=== PATIENT | female | born 1975 | race Caucasian/White ===

== ENCOUNTER → 2017-12-27 07:03 | Outpatient (CLI) | payer OTHER, SELFPAY ==
[2017-12-27 09:29] LABS: Hematocrit 40.8 % (36-46); Mean Corpuscular HGB Conc 34.4 % (30-36); Mean Corpuscular Hemoglobin 34.6 PG (26-34); Mean Corpuscular Volume 100.4 fL (80-100); Platelet Count 264 X10^3/uL (150-400); Red Blood Cell Count 4.06 X10^6/uL (4.0-5.2); Red Cell Distribution Width 12.1 % (11.6-14.8); White Blood Cell Count 5.5 X10^3/uL (4.5-11.0)
[2017-12-27 09:30] LABS: Add Manual Diff / Slide Review YES
[2017-12-27 09:56] LABS: Alanine Aminotransferase 27 IU/L (9-52); Albumin 4.6 g/dL (3.5-5.0); Albumin Globulin Ratio 1.5 (1.0-2.8); Alkaline Phosphatase 53 U/L (38-126); Aspartate Aminotransferase 21 IU/L (14-36); BUN Creatinine Ratio 18.6 (6-22); Bilirubin Total 0.5 mg/dL (0.2-1.3); Blood Urea Nitrogen 13 mg/dL (7-17); Calcium 9.6 mg/dL (8.4-10.2); Carbon Dioxide 28 mmol/L (22-32); Chloride 99 mmol/L (98-107); Cholesterol 177 mg/dL (140-199); Estimated Glomerular Filt Rate > 60.0 mL/min (>60); Globulin 3.1 g/dL (1.7-4.1); Glucose 90 mg/dL (70-100); HDL Cholesterol 77 mg/dL (40-60); HEMOLYSIS < 15 (0-50); LDL Cholesterol Calculated 86 mg/dL (<100); Potassium 4.4 mmol/L (3.4-5.1); Sodium 140 mmol/L (137-145); Total Protein 7.7 g/dL (6.3-8.2); Triglycerides 70 mg/dL (35-150)
[2017-12-27 10:11] LABS: Neutrophils Absolute Manual 1815 /uL (3000-5900); Total Cells Counted 100
[2017-12-27 10:12] LABS: RBC Morphology Normal Morphology
[2017-12-27 10:19] LABS: Vitamin D 25 Hydroxy (D3) 45.1 ng/mL (30.0-100.0)
[2017-12-27 10:23] LABS: T4 Total Thyroxine 8.52 ug/dL (5.5-11.0); T7 (Free Thyroxine Index) 2.79 (1.65-3.89); Triiodothryronine T3 Uptake 32.7 % (23.5-40.5)
[2017-12-27 10:36] LABS: Thyroid Stimulating Hormone 0.81 uIU/mL (0.47-4.68)
[2017-12-28 18:32] LABS: Ionized Calcium 4.7 mg/dL (4.8-5.6)
[2017-12-31 15:59] LABS: Parathyroid Hormone Int 50 pg/mL (14-64)
== END ==
PROVIDERS: PCP Nurse Practitioner Family; Visit Provider Nurse Practitioner Family
DX: G47.00 Insomnia, unspecified (principal); F41.9 Anxiety disorder, unspecified; R53.83 Other fatigue; E55.9 Vitamin D deficiency, unspecified; D64.9 Anemia, unspecified; E83.52 Hypercalcemia
CPT/HCPCS: 36415; 80053; 80061; 82306; 82330; 83970; 84436; 84443; 84479; 85025; 86376; 86800

== ENCOUNTER 2020-08-04 15:15 | Outpatient (RCR) | payer BC, SELFPAY ==
--- NOTE | 2020-07-07 17:26 | PT.OIE ---
Current Diagnoses Sciatica, left side (07/07/20) Visit Care Team Role Provider Type Meg Samaniego ND Attending Provider Non-Staff Primary Care Provider Referring Provider Specialty: Naturopathy Address: [address] [place] [address], [facility] Email: Physical Therapy Initial Evaluation PT-OP-A Visit Information Start: 07/07/20 16:53 Freq: Status: Active Protocol: Document 07/07/20 16:54 HH (Rec: 07/07/20 17:26 [email or web address]) Out-Patient Physical Therapy Visit Information Visit Information Visit Type Initial Evaluation Visit Start Time 15:15 Visit Stop Time 16:00 Total Visit Minutes 45 Visit Number 08/21 Number of INDUSTRIAL RENDERER Visits 0 Evaluation Information Evaluation Date 07/07/20 PT-OP-B Current Condition Start: 07/07/20 16:53 Freq: Status: Active Protocol: Document 07/07/20 16:54 HH (Rec: 07/07/20 17:26 [email or web address]) Current Condition History of Current Condition Onset Date 05/10/20 Current Complaints L posterior thigh pain. History of Current Condition pt is a 45yo active and healthy female here for her new onset of dull L posterior thigh pain since 05/10/20. Pt stated that she usually sleeps in a child pose position. Her L posterior thigh pain started after that night and her pain was consistent for a few days. Hip stretches and movements tend to help but prolonged sitting tend to worsen her symptoms. She tends to sit in a figure 4 position now to relieve her pain. She denies her pain does not affect her sleep and there's no tingling and numbness sensation. 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 PT-OP-C Subjective Start: 07/07/20 16:53 Freq: Status: Active Protocol: Document 07/07/20 16:54 HH (Rec: 07/07/20 17:26 [email or web address]) Patient Questionnaires Oswestry Low Back Index Oswestry Score 18 Oswestry Impairment 1 to 19% Impaired (Score 1-19) OP-PT Pain Assessment Location L posterior thigh Pain Location Details medial proximal hamstrings Intensity 2 Scale Used Numeric (0 - 10) Description Aching,Dull Frequency Frequent Pain Aggravating Factors Sitting Pain Alleviating Factors Position,Exercise,Massage PT-OP-D Balance Start: 07/07/20 16:53 Freq: Status: Active Protocol: Document 07/07/20 16:54 HH (Rec: 07/07/20 17:26 [email or web address]) Balance Tests Single Limb Standing Single Limb- Right WFL Single Limb- Left WFL PT-OP-F Manual Assessment Start: 07/07/20 16:53 Freq: Status: Active Protocol: Document 07/07/20 16:54 HH (Rec: 07/07/20 17:26 [email or web address]) Manual Assessments Soft Tissue Assessment Soft Tissue Mobility Assessment increased tenderness at L medial proximal to moderate manual pressure Joint Mobility Assessment Joint Mobility Assessment no deficits noted. PT-OP-H Neuro Start: 07/07/20 16:53 Freq: Status: Active Protocol: Document 07/07/20 16:54 HH (Rec: 07/07/20 17:26 [email or web address]) Deep Tendon Reflex & Clonus Assessment Deep Tendon Reflex Bilateral Achilles Deep Tendon Reflex 2+ Normal Bilateral Patellar Deep Tendon Reflex 2+ Normal PT-OP-K Range of Motion Start: 07/07/20 16:53 Freq: Status: Active Protocol: Document 07/07/20 16:54 HH (Rec: 07/07/20 17:26 [email or web address]) Lumbar Spine Range of Motion Lumbar Spine Active Percentage Testing Position Supine Comments floor touch test = knuckles on floor Lateral flexion L / R= to lateral knee bilaterally extension= shoulders clear ankles Hip Goniometric Range of Motion Hip Right Active Hip ROM WFL Yes Testing Position Supine Straight Leg Raise 93 Internal Rotation 43 External Rotation 42 Left Active Hip ROM WFL Yes Testing Position Supine Straight Leg Raise 94 Internal Rotation 45 External Rotation 40 PT-OP-L Special Tests Start: 07/07/20 16:53 Freq: Status: Active Protocol: Document 07/07/20 16:54 HH (Rec: 07/07/20 17:26 [email or web address]) Special Tests Lumbar Spine Special Tests Standing Flexion Test Results -ve B Slump Test Results -ve B Rosalio Test Results -ve B Straight Leg Raise Test Results -ve B Hip Special Tests Scour Test Test Results -ve B [place] Test Results -ve B PT-OP-M Strength Start: 07/07/20 16:53 Freq: Status: Active Protocol: Document 07/07/20 16:54 HH (Rec: 07/07/20 17:26 HH [email or web address]) Hip Strength Hip Manual Muscle Testing Right Flexion (L2) 5 Normal Extension (S1) 5 Normal Abduction 5 Normal Adduction 5 Normal Left Flexion (L2) 4+ Good+ Extension (S1) 4+ Good+ Abduction 5 Normal Adduction 5 Normal Knee Strength Knee Manual Muscle Testing Right Flexion (S2) 5 Normal Extension (L3) 5 Normal Left Flexion (S2) 4- Good- Extension (L3) 5 Normal Comments prone, noticed L hip flexion and lumbar extension PT-OP-Q Treatments Start: 07/07/20 16:53 Freq: Status: Active Protocol: Document 07/07/20 16:54 HH (Rec: 07/07/20 17:26 [email or web address]) Therapeutic Exercises Prone Exercises hamstrings curl Side left Equipment Used level 2 band Comments for hEP, cues on preventing lumbar ext Manual Therapy Treatment Soft Tissue Mobilization proximal hamstrings Body Location L medial proximal hamstrings Mobilization Type Sustained Pressure,Trigger Point Release Intensity/Depth Deep Body Position Prone Comments slight tenderness noted at medial proximal hamstrings PT-OP-T Assessment and Plan Start: 07/07/20 16:53 Freq: Status: Active Protocol: Document 07/07/20 16:54 HH (Rec: 07/07/20 17:26 [email or web address]) Physical Therapy Assessment Rehab Potential Rehabilitation Potential Excellent Evaluation Complexity Number of Personal Factors/Comorbidities 1-2 Number of Body Systems Impaired 1-2 Clinical Presentation at Evaluation Stable Impairments Impairments Pain,Soft Tissue Mobility, Strength Goals Oswestry Impairment pt scores 18 on Oswestry LBP questionnaire Food Trades Assistants Goal (LTG) pt will score <10 on Oswestry LBP questionnaire to improve her quality of life LTG Duration 6 weeks pain Impairment unable to sit more than 1hour d/t pain Nursing Home Goal (LTG) pt will be able to sit more than 1 hour without pain LTG Duration 6 weeks hamstrings strength Impairment L hamstrings strength = 4-/5 Nursing Home Goal (LTG) pt will improve her L hamstrings strength to 5 /5 so 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 Upon assessment, pt's hip strength is symmetrical and WNL, along with -ve findings for lumbar radiculopathy or hip joint pathology. However, pt's pain primarily located and medial aspect of L proximal hamstrings and she has significant weakness and compensation (lumbar extension ) during strength test. Pt most likely suffered from a hamstring strain. Provided HEP with hamstring curl and hamstring STM. 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 Physical Therapy Plan Frequency and Duration Frequency of Treatment 1x/Week Duration of Treatment 6 weeks Plan of Care Start Date 07/07/20 Plan of Care End Date 08/21/20 Therapeutic Interventions Therapeutic Interventions Balance Training,Gait Training ,Home Exercise Program,Joint Mobilizations,Manual Therapy, Neuromuscular Re-education, Patient/Caregiver Education, Self-Care/Home Management,Soft Tissue Mobilization,Taping, Therapeutic Activities, Therapeutic Exercises Modalities Biofeedback,Cold Pack/Ice Massage,Electric Stimulation, Hot Packs,Infrared Therapy, Traction- Mechanical, Ultrasound Next Visit Focus/Plan Next Note Type Treatment Note Next Visit Plan check hEP bike hamstring curl , RDL, good mornings SLS
--- NOTE | 2020-07-07 17:27 | PT.OPPOC ---
Physical, Occupational & Speech Therapy At [facility] Current Diagnoses Sciatica, left side (07/07/20) Visit Care Team Role Provider Type Meg Samaniego ND Attending Provider Non-Staff Primary Care Provider Referring Provider Specialty: Naturopathy Address: [address] [place] [address], [facility] Email: Plan Of Care PT-OP-T Assessment and Plan Start: 07/07/20 16:53 Freq: Status: Active Protocol: Document 07/07/20 16:54 HH (Rec: 07/07/20 17:26 HH [email or web address]) Physical Therapy Assessment Rehab Potential Rehabilitation Potential Excellent Evaluation Complexity Number of Personal Factors/Comorbidities 1-2 Number of Body Systems Impaired 1-2 Clinical Presentation at Evaluation Stable Impairments Impairments Pain,Soft Tissue Mobility, Strength Goals Oswestry Impairment pt scores 18 on Oswestry LBP questionnaire Nursing Home Goal (LTG) pt will score <10 on Oswestry LBP questionnaire to improve her quality of life LTG Duration 6 weeks pain Impairment unable to sit more than 1hour d/t pain Drywall Taper Goal (LTG) pt will be able to sit more than 1 hour without pain LTG Duration 6 weeks hamstrings strength Impairment L hamstrings strength = 4-/5 Nursing Home Goal (LTG) pt will improve her L hamstrings strength to 5 /5 so 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 Upon assessment, pt's hip strength is symmetrical and WNL, along with -ve findings for lumbar radiculopathy or hip joint pathology. However, pt's pain primarily located and medial aspect of L proximal hamstrings and she has significant weakness and compensation (lumbar extension ) during strength test. Pt most likely suffered from a hamstring strain. Provided HEP with hamstring curl and hamstring STM. 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 Physical Therapy Plan Frequency and Duration Frequency of Treatment 1x/Week Duration of Treatment 6 weeks Plan of Care Start Date 07/07/20 Plan of Care End Date 08/21/20 Therapeutic Interventions Therapeutic Interventions Balance Training,Gait Training ,Home Exercise Program,Joint Mobilizations,Manual Therapy, Neuromuscular Re-education, Patient/Caregiver Education, Self-Care/Home Management,Soft Tissue Mobilization,Taping, Therapeutic Activities, Therapeutic Exercises Modalities Biofeedback,Cold Pack/Ice Massage,Electric Stimulation, Hot Packs,Infrared Therapy, Traction- Mechanical, Ultrasound Next Visit Focus/Plan Next Note Type Treatment Note Next Visit Plan check hEP bike hamstring curl , RDL, good mornings SLS Plan of Care Dates Plan of Care Start Date 07/07/20 Plan of Care End Date 08/21/20 Electronically Signed by: Arnulfo Banuelos, PT 07/07/20 0358 Please Sign and Return: I have reviewed this Plan of Care and certify that the skilled therapy services above are required to meet the patient?s needs. Physician Signature Date Printed Name and Credentials Clinical Instructor Signature Printed Name and Credentials
--- NOTE | 2020-07-14 16:10 | PT.OTN ---
Current Diagnoses Sciatica, left side (07/14/20) Physical Therapy Treatment Note PT-OP-A Visit Information Start: 07/07/20 16:53 Freq: Status: Active Protocol: Document 07/14/20 15:12 HH (Rec: 07/14/20 16:10 [id number]) Out-Patient Physical Therapy Visit Information Visit Information Visit Type Treatment Note Visit Start Time 15:15 Visit Stop Time 16:00 Total Visit Minutes 45 Visit Number 2/ Number of PLANT ASSIGNER Visits 0 PT-OP-B Current Condition Start: 07/07/20 16:53 Freq: Status: Active Protocol: Document 07/07/20 16:54 HH (Rec: 07/07/20 17:26 [email or web address]) Current Condition History of Current Condition Onset Date 05/10/20 Current Complaints L posterior thigh pain. History of Current Condition pt is a 45yo active and healthy female here for her new onset of dull L posterior thigh pain since 05/10/20. Pt stated that she usually sleeps in a child pose position. Her L posterior thigh pain started after that night and her pain was consistent for a few days. Hip stretches and movements tend to help but prolonged sitting tend to worsen her symptoms. She tends to sit in a figure 4 position now to relieve her pain. She denies her pain does not affect her sleep and there's no tingling and numbness sensation. 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 Patient Reported Progress Same PT-OP-D Balance Start: 07/07/20 16:53 Freq: Status: Active Protocol: Document 07/07/20 16:54 HH (Rec: 07/07/20 17:26 [email or web address]) Balance Tests Single Limb Standing Single Limb- Right WFL Single Limb- Left WFL PT-OP-F Manual Assessment Start: 07/07/20 16:53 Freq: Status: Active Protocol: Document 07/07/20 16:54 HH (Rec: 07/07/20 17:26 [email or web address]) Manual Assessments Soft Tissue Assessment Soft Tissue Mobility Assessment increased tenderness at L medial proximal to moderate manual pressure Joint Mobility Assessment Joint Mobility Assessment no deficits noted. PT-OP-H Neuro Start: 07/07/20 16:53 Freq: Status: Active Protocol: Document 07/07/20 16:54 HH (Rec: 07/07/20 17:26 [email or web address]) Deep Tendon Reflex & Clonus Assessment Deep Tendon Reflex Bilateral Achilles Deep Tendon Reflex 2+ Normal Bilateral Patellar Deep Tendon Reflex 2+ Normal PT-OP-K Range of Motion Start: 07/07/20 16:53 Freq: Status: Active Protocol: Document 07/07/20 16:54 HH (Rec: 07/07/20 17:26 [email or web address]) Lumbar Spine Range of Motion Lumbar Spine Active Percentage Testing Position Supine Comments floor touch test = knuckles on floor Lateral flexion L / R= to lateral knee bilaterally extension= shoulders clear ankles Hip Goniometric Range of Motion Hip Right Active Hip ROM WFL Yes Testing Position Supine Straight Leg Raise 93 Internal Rotation 43 External Rotation 42 Left Active Hip ROM WFL Yes Testing Position Supine Straight Leg Raise 94 Internal Rotation 45 External Rotation 40 PT-OP-L Special Tests Start: 07/07/20 16:53 Freq: Status: Active Protocol: Document 07/07/20 16:54 HH (Rec: 07/07/20 17:26 [email or web address]) Special Tests Lumbar Spine Special Tests Standing Flexion Test Results -ve B Slump Test Results -ve B Rosalio Test Results -ve B Straight Leg Raise Test Results -ve B Hip Special Tests Scour Test Test Results -ve B [place] Test Results -ve B PT-OP-M Strength Start: 07/07/20 16:53 Freq: Status: Active Protocol: Document 07/07/20 16:54 HH (Rec: 07/07/20 17:26 [email or web address]) Hip Strength Hip Manual Muscle Testing Right Flexion (L2) 5 Normal Extension (S1) 5 Normal Abduction 5 Normal Adduction 5 Normal Left Flexion (L2) 4+ Good+ Extension (S1) 4+ Good+ Abduction 5 Normal Adduction 5 Normal Knee Strength Knee Manual Muscle Testing Right Flexion (S2) 5 Normal Extension (L3) 5 Normal Left Flexion (S2) 4- Good- Extension (L3) 5 Normal Comments prone, noticed L hip flexion and lumbar extension PT-OP-Q Treatments Start: 07/07/20 16:53 Freq: Status: Active Protocol: Document 07/14/20 15:12 HH (Rec: 07/14/20 16:10 [id number]) Therapeutic Exercises Supine Exercises SLR Supine Exercise Name with knee extensoin and DF Side bilateral Reps/Minutes 8 x2 Prone Exercises hamstrings curl Side left Equipment Used 2# ankle weight Comments for hEP, cues on preventing lumbar ext Standing Exercises SLS Side bilateral Reps/Minutes 8 x2 Comments cues on soft knee and neutral spine RDL Side bilateral Equipment Used 2x 4# DBs Reps/Minutes 8 x2 Manual Therapy Treatment Soft Tissue Mobilization proximal hamstrings Body Location L medial proximal hamstrings Mobilization Type Sustained Pressure,Trigger Point Release Intensity/Depth Deep Body Position Prone Comments slight tenderness noted at center proximal hamstrings PT-OP-T Assessment and Plan Start: 07/07/20 16:53 Freq: Status: Active Protocol: Document 07/14/20 15:12 HH (Rec: 07/14/20 16:10 [id number]) Physical Therapy Assessment Goals Oswestry Impairment pt scores 18 on Oswestry LBP questionnaire Asbestos Handler Goal (LTG) pt will score <10 on Oswestry LBP questionnaire to improve her quality of life LTG Duration 6 weeks pain Impairment unable to sit more than 1hour d/t pain Asbestos Handler Goal (LTG) pt will be able to sit more than 1 hour without pain LTG Duration 6 weeks hamstrings strength Impairment L hamstrings strength = 4-/5 Snf Goal (LTG) pt will improve her L hamstrings strength to 5 /5 so she can fully practicipate her Isaura class without discomfort LTG Duration 6 weeks Assessment Summary Assessment Pt has a flare up at her HS pain possibly d/t excessive resistance from resistance band. Back off to level 1 / no weight today and she jairon fine . Added RDL and SLR to HEP Physical Therapy Plan Frequency and Duration Frequency of Treatment 1x/Week Duration of Treatment 6 weeks Plan of Care Start Date 07/07/20 Plan of Care End Date 08/21/20 Next Visit Focus/Plan Next Note Type Treatment Note Next Visit Plan check hEP bike hamstring curl , RDL, good mornings SLS
--- NOTE | 2020-07-19 16:12 | PT.OTN ---
Current Diagnoses Sciatica, left side (07/19/20) Physical Therapy Treatment Note PT-OP-A Visit Information Start: 07/07/20 16:53 Freq: Status: Active Protocol: Document 07/19/20 15:21 HH (Rec: 07/19/20 16:12 [id number]) Out-Patient Physical Therapy Visit Information Visit Information Visit Type Treatment Note Visit Start Time 15:17 Visit Stop Time 16:00 Total Visit Minutes 43 Visit Number 10/19 Number of ACCOUNT ASSISTANT Visits 0 PT-OP-B Current Condition Start: 07/07/20 16:53 Freq: Status: Active Protocol: Document 07/07/20 16:54 HH (Rec: 07/07/20 17:26 [email or web address]) Current Condition History of Current Condition Onset Date 05/10/20 Current Complaints L posterior thigh pain. History of Current Condition pt is a 45yo active and healthy female here for her new onset of dull L posterior thigh pain since 05/10/20. Pt stated that she usually sleeps in a child pose position. Her L posterior thigh pain started after that night and her pain was consistent for a few days. Hip stretches and movements tend to help but prolonged sitting tend to worsen her symptoms. She tends to sit in a figure 4 position now to relieve her pain. She denies her pain does not affect her sleep and there's no tingling and numbness sensation. 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 And i still feel the pain mostly driving but a bit less while normal sitting. Patient Reported Progress Same PT-OP-D Balance Start: 07/07/20 16:53 Freq: Status: Active Protocol: Document 07/07/20 16:54 HH (Rec: 07/07/20 17:26 [email or web address]) Balance Tests Single Limb Standing Single Limb- Right WFL Single Limb- Left WFL PT-OP-F Manual Assessment Start: 07/07/20 16:53 Freq: Status: Active Protocol: Document 07/07/20 16:54 HH (Rec: 07/07/20 17:26 [email or web address]) Manual Assessments Soft Tissue Assessment Soft Tissue Mobility Assessment increased tenderness at L medial proximal to moderate manual pressure Joint Mobility Assessment Joint Mobility Assessment no deficits noted. PT-OP-H Neuro Start: 07/07/20 16:53 Freq: Status: Active Protocol: Document 07/07/20 16:54 HH (Rec: 07/07/20 17:26 [email or web address]) Deep Tendon Reflex & Clonus Assessment Deep Tendon Reflex Bilateral Achilles Deep Tendon Reflex 2+ Normal Bilateral Patellar Deep Tendon Reflex 2+ Normal PT-OP-K Range of Motion Start: 07/07/20 16:53 Freq: Status: Active Protocol: Document 07/07/20 16:54 HH (Rec: 07/07/20 17:26 [email or web address]) Lumbar Spine Range of Motion Lumbar Spine Active Percentage Testing Position Supine Comments floor touch test = knuckles on floor Lateral flexion L / R= to lateral knee bilaterally extension= shoulders clear ankles Hip Goniometric Range of Motion Hip Right Active Hip ROM WFL Yes Testing Position Supine Straight Leg Raise 93 Internal Rotation 43 External Rotation 42 Left Active Hip ROM WFL Yes Testing Position Supine Straight Leg Raise 94 Internal Rotation 45 External Rotation 40 PT-OP-L Special Tests Start: 07/07/20 16:53 Freq: Status: Active Protocol: Document 07/07/20 16:54 HH (Rec: 07/07/20 17:26 [email or web address]) Special Tests Lumbar Spine Special Tests Standing Flexion Test Results -ve B Slump Test Results -ve B Rosalio Test Results -ve B Straight Leg Raise Test Results -ve B Hip Special Tests Scour Test Test Results -ve B [place] Test Results -ve B PT-OP-M Strength Start: 07/07/20 16:53 Freq: Status: Active Protocol: Document 07/07/20 16:54 HH (Rec: 07/07/20 17:26 [email or web address]) Hip Strength Hip Manual Muscle Testing Right Flexion (L2) 5 Normal Extension (S1) 5 Normal Abduction 5 Normal Adduction 5 Normal Left Flexion (L2) 4+ Good+ Extension (S1) 4+ Good+ Abduction 5 Normal Adduction 5 Normal Knee Strength Knee Manual Muscle Testing Right Flexion (S2) 5 Normal Extension (L3) 5 Normal Left Flexion (S2) 4- Good- Extension (L3) 5 Normal Comments prone, noticed L hip flexion and lumbar extension PT-OP-Q Treatments Start: 07/07/20 16:53 Freq: Status: Active Protocol: Document 07/19/20 15:21 (Rec: 07/19/20 16:12 [id number]) Therapeutic Exercises Supine Exercises bridging Side bilateral Reps/Minutes 8x2 SLR Supine Exercise Name with knee extensoin and DF Side bilateral Reps/Minutes 8 x2 Prone Exercises hamstrings curl Side left Equipment Used 2# ankle weight Comments no discomfort Standing Exercises RDL Standing Exercise Name staggered stance Side bilateral Equipment Used 2x 4# DBs Reps/Minutes 8 x2 Manual Therapy Treatment Soft Tissue Mobilization proximal hamstrings Body Location L medial proximal hamstrings Mobilization Type Sustained Pressure,Trigger Point Release Intensity/Depth Deep Body Position Prone Comments slight tenderness noted at center proximal hamstrings Self-Care/Home Management Treatment Education Patient Education Body Mechanics,Posture Other Education assessed pt's drivier seat height. Pt initally reports immediate posterior thigh pain with her current seat level but reduced discomfort after elevating her seat. PT-OP-T Assessment and Plan Start: 07/07/20 16:53 Freq: Status: Active Protocol: Document 07/19/20 15:21 (Rec: 07/19/20 16:12 [id number]) Physical Therapy Assessment Goals Oswestry Impairment pt scores 18 on Oswestry LBP questionnaire Prison Goal (LTG) pt will score <10 on Oswestry LBP questionnaire to improve her quality of life LTG Duration 6 weeks pain Impairment unable to sit more than 1hour d/t pain Prison Goal (LTG) pt will be able to sit more than 1 hour without pain LTG Duration 6 weeks hamstrings strength Impairment L hamstrings strength = 4-/5 Architect Marine Goal (LTG) pt will improve her L hamstrings strength to 5 /5 so she can fully practicipate her Isaura class without discomfort LTG Duration 6 weeks Assessment Summary Assessment Pt jairon session well today without much discomfort. Assessed pt's car seat and adjusted it to an elevated position. Will reassess her symptoms. Physical Therapy Plan Frequency and Duration Frequency of Treatment 1x/Week Duration of Treatment 6 weeks Plan of Care Start Date 07/07/20 Plan of Care End Date 08/21/20 Next Visit Focus/Plan Next Note Type Treatment Note Next Visit Plan check hEP bike hamstring curl , RDL, good mornings SLS
--- NOTE | 2020-07-19 16:20 | PT.OTN ---
Current Diagnoses Sciatica, left side (07/19/20) Physical Therapy Treatment Note PT-OP-A Visit Information Start: 07/07/20 16:53 Freq: Status: Active Protocol: Document 07/19/20 15:21 HH (Rec: 07/19/20 16:12 [id number]) Out-Patient Physical Therapy Visit Information Visit Information Visit Type Treatment Note Visit Start Time 15:17 Visit Stop Time 16:00 Total Visit Minutes 43 Visit Number 10/19 Number of ACCESS CONTROL SPECIALIST Visits 0 PT-OP-B Current Condition Start: 07/07/20 16:53 Freq: Status: Active Protocol: Document 07/07/20 16:54 HH (Rec: 07/07/20 17:26 [email or web address]) Current Condition History of Current Condition Onset Date 05/10/20 Current Complaints L posterior thigh pain. History of Current Condition pt is a 45yo active and healthy female here for her new onset of dull L posterior thigh pain since 05/10/20. Pt stated that she usually sleeps in a child pose position. Her L posterior thigh pain started after that night and her pain was consistent for a few days. Hip stretches and movements tend to help but prolonged sitting tend to worsen her symptoms. She tends to sit in a figure 4 position now to relieve her pain. She denies her pain does not affect her sleep and there's no tingling and numbness sensation. Pt is a [employer] who also likes to walk 3 miles 3-4 times a week and a 7mile hike during weekend. 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 And i still feel the pain mostly driving but a bit less while normal sitting. Patient Reported Progress Same PT-OP-D Balance Start: 07/07/20 16:53 Freq: Status: Active Protocol: Document 07/07/20 16:54 HH (Rec: 07/07/20 17:26 [email or web address]) Balance Tests Single Limb Standing Single Limb- Right WFL Single Limb- Left WFL PT-OP-F Manual Assessment Start: 07/07/20 16:53 Freq: Status: Active Protocol: Document 07/07/20 16:54 HH (Rec: 07/07/20 17:26 [email or web address]) Manual Assessments Soft Tissue Assessment Soft Tissue Mobility Assessment increased tenderness at L medial proximal to moderate manual pressure Joint Mobility Assessment Joint Mobility Assessment no deficits noted. PT-OP-H Neuro Start: 07/07/20 16:53 Freq: Status: Active Protocol: Document 07/07/20 16:54 HH (Rec: 07/07/20 17:26 [email or web address]) Deep Tendon Reflex & Clonus Assessment Deep Tendon Reflex Bilateral Achilles Deep Tendon Reflex 2+ Normal Bilateral Patellar Deep Tendon Reflex 2+ Normal PT-OP-K Range of Motion Start: 07/07/20 16:53 Freq: Status: Active Protocol: Document 07/07/20 16:54 HH (Rec: 07/07/20 17:26 [email or web address]) Lumbar Spine Range of Motion Lumbar Spine Active Percentage Testing Position Supine Comments floor touch test = knuckles on floor Lateral flexion L / R= to lateral knee bilaterally extension= shoulders clear ankles Hip Goniometric Range of Motion Hip Right Active Hip ROM WFL Yes Testing Position Supine Straight Leg Raise 93 Internal Rotation 43 External Rotation 42 Left Active Hip ROM WFL Yes Testing Position Supine Straight Leg Raise 94 Internal Rotation 45 External Rotation 40 PT-OP-L Special Tests Start: 07/07/20 16:53 Freq: Status: Active Protocol: Document 07/07/20 16:54 HH (Rec: 07/07/20 17:26 [email or web address]) Special Tests Lumbar Spine Special Tests Standing Flexion Test Results -ve B Slump Test Results -ve B Rosalio Test Results -ve B Straight Leg Raise Test Results -ve B Hip Special Tests Scour Test Test Results -ve B [place] Test Results -ve B PT-OP-M Strength Start: 07/07/20 16:53 Freq: Status: Active Protocol: Document 07/07/20 16:54 HH (Rec: 07/07/20 17:26 [email or web address]) Hip Strength Hip Manual Muscle Testing Right Flexion (L2) 5 Normal Extension (S1) 5 Normal Abduction 5 Normal Adduction 5 Normal Left Flexion (L2) 4+ Good+ Extension (S1) 4+ Good+ Abduction 5 Normal Adduction 5 Normal Knee Strength Knee Manual Muscle Testing Right Flexion (S2) 5 Normal Extension (L3) 5 Normal Left Flexion (S2) 4- Good- Extension (L3) 5 Normal Comments prone, noticed L hip flexion and lumbar extension PT-OP-Q Treatments Start: 07/07/20 16:53 Freq: Status: Active Protocol: Document 07/19/20 15:21 (Rec: 07/19/20 16:12 [id number]) Therapeutic Exercises Supine Exercises bridging Side bilateral Reps/Minutes 8x2 SLR Supine Exercise Name with knee extensoin and DF Side bilateral Reps/Minutes 8 x2 Prone Exercises hamstrings curl Side left Equipment Used 2# ankle weight Comments no discomfort Standing Exercises RDL Standing Exercise Name staggered stance Side bilateral Equipment Used 2x 4# DBs Reps/Minutes 8 x2 Manual Therapy Treatment Soft Tissue Mobilization proximal hamstrings Body Location L medial proximal hamstrings Mobilization Type Sustained Pressure,Trigger Point Release Intensity/Depth Deep Body Position Prone Comments slight tenderness noted at center proximal hamstrings Self-Care/Home Management Treatment Education Patient Education Body Mechanics,Posture Other Education assessed pt's drivier seat height. Pt initally reports immediate posterior thigh pain with her current seat level but reduced discomfort after elevating her seat. PT-OP-T Assessment and Plan Start: 07/07/20 16:53 Freq: Status: Active Protocol: Document 07/19/20 15:21 (Rec: 07/19/20 16:12 [id number]) Physical Therapy Assessment Goals Oswestry Impairment pt scores 18 on Oswestry LBP questionnaire Fdc Goal (LTG) pt will score <10 on Oswestry LBP questionnaire to improve her quality of life LTG Duration 6 weeks pain Impairment unable to sit more than 1hour d/t pain Fdc Goal (LTG) pt will be able to sit more than 1 hour without pain LTG Duration 6 weeks hamstrings strength Impairment L hamstrings strength = 4-/5 Footwear Stitcher Goal (LTG) pt will improve her L hamstrings strength to 5 /5 so she can fully practicipate her Isaura class without discomfort LTG Duration 6 weeks Assessment Summary Assessment Pt jairon session well today without much discomfort. Assessed pt's car seat and adjusted it to an elevated position. Will reassess her symptoms. Physical Therapy Plan Frequency and Duration Frequency of Treatment 1x/Week Duration of Treatment 6 weeks Plan of Care Start Date 07/07/20 Plan of Care End Date 08/21/20 Next Visit Focus/Plan Next Note Type Treatment Note Next Visit Plan check hEP bike hamstring curl , RDL, good mornings SLS
--- NOTE | 2020-08-04 16:13 | PT.OTN ---
Current Diagnoses Sciatica, left side (08/04/20) Physical Therapy Treatment Note PT-OP-A Visit Information Start: 07/07/20 16:53 Freq: Status: Active Protocol: Document 08/04/20 15:17 HH (Rec: 08/04/20 16:13 [id number]) Out-Patient Physical Therapy Visit Information Visit Information Visit Type Treatment Note Visit Start Time 15:16 Visit Stop Time 16:00 Total Visit Minutes 44 Visit Number 11/19 Number of DIRECTOR OF CONSUMER AFFAIRS Visits 0 PT-OP-B Current Condition Start: 07/07/20 16:53 Freq: Status: Active Protocol: Document 07/07/20 16:54 HH (Rec: 07/07/20 17:26 [email or web address]) Current Condition History of Current Condition Onset Date 05/10/20 Current Complaints L posterior thigh pain. History of Current Condition pt is a 45yo active and healthy female here for her new onset of dull L posterior thigh pain since 05/10/20. Pt stated that she usually sleeps in a child pose position. Her L posterior thigh pain started after that night and her pain was consistent for a few days. Hip stretches and movements tend to help but prolonged sitting tend to worsen her symptoms. She tends to sit in a figure 4 position now to relieve her pain. She denies her pain does not affect her sleep and there's no tingling and numbness sensation. Pt is a [employer] Gr[employer] who also likes to walk 3 miles 3-4 times a week and a 7mile hike during weekend. 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 Patient Reported Progress Improving PT-OP-D Balance Start: 07/07/20 16:53 Freq: Status: Active Protocol: Document 07/07/20 16:54 HH (Rec: 07/07/20 17:26 [email or web address]) Balance Tests Single Limb Standing Single Limb- Right WFL Single Limb- Left WFL PT-OP-F Manual Assessment Start: 07/07/20 16:53 Freq: Status: Active Protocol: Document 07/07/20 16:54 HH (Rec: 07/07/20 17:26 [email or web address]) Manual Assessments Soft Tissue Assessment Soft Tissue Mobility Assessment increased tenderness at L medial proximal to moderate manual pressure Joint Mobility Assessment Joint Mobility Assessment no deficits noted. PT-OP-H Neuro Start: 07/07/20 16:53 Freq: Status: Active Protocol: Document 07/07/20 16:54 HH (Rec: 07/07/20 17:26 HH [email or web address]) Deep Tendon Reflex & Clonus Assessment Deep Tendon Reflex Bilateral Achilles Deep Tendon Reflex 2+ Normal Bilateral Patellar Deep Tendon Reflex 2+ Normal PT-OP-K Range of Motion Start: 07/07/20 16:53 Freq: Status: Active Protocol: Document 07/07/20 16:54 HH (Rec: 07/07/20 17:26 [email or web address]) Lumbar Spine Range of Motion Lumbar Spine Active Percentage Testing Position Supine Comments floor touch test = knuckles on floor Lateral flexion L / R= to lateral knee bilaterally extension= shoulders clear ankles Hip Goniometric Range of Motion Hip Right Active Hip ROM WFL Yes Testing Position Supine Straight Leg Raise 93 Internal Rotation 43 External Rotation 42 Left Active Hip ROM WFL Yes Testing Position Supine Straight Leg Raise 94 Internal Rotation 45 External Rotation 40 PT-OP-L Special Tests Start: 07/07/20 16:53 Freq: Status: Active Protocol: Document 07/07/20 16:54 HH (Rec: 07/07/20 17:26 HH [email or web address]) Special Tests Lumbar Spine Special Tests Standing Flexion Test Results -ve B Slump Test Results -ve B Rosalio Test Results -ve B Straight Leg Raise Test Results -ve B Hip Special Tests Scour Test Test Results -ve B [place] Test Results -ve B PT-OP-M Strength Start: 07/07/20 16:53 Freq: Status: Active Protocol: Document 07/07/20 16:54 HH (Rec: 07/07/20 17:26 HH [email or web address]) Hip Strength Hip Manual Muscle Testing Right Flexion (L2) 5 Normal Extension (S1) 5 Normal Abduction 5 Normal Adduction 5 Normal Left Flexion (L2) 4+ Good+ Extension (S1) 4+ Good+ Abduction 5 Normal Adduction 5 Normal Knee Strength Knee Manual Muscle Testing Right Flexion (S2) 5 Normal Extension (L3) 5 Normal Left Flexion (S2) 4- Good- Extension (L3) 5 Normal Comments prone, noticed L hip flexion and lumbar extension PT-OP-Q Treatments Start: 07/07/20 16:53 Freq: Status: Active Protocol: Document 08/04/20 15:17 (Rec: 08/04/20 16:13 [id number]) Therapeutic Exercises Supine Exercises sciatic nerve glide Supine Exercise Name with knee extension and DF Side bilateral Comments for HEP tennis ball release Supine Exercise Name piriformis Side left Comments for HEP Prone Exercises hamstrings curl Side left Equipment Used yellow band Comments no discomfort Standing Exercises clamshell Side bilateral Reps/Minutes 10x2 Comments weakness noted at L, for HEP Manual Therapy Treatment Soft Tissue Mobilization piriformis Mobilization Type Sustained Pressure,Trigger Point Release,Other Intensity/Depth Moderate Body Position Prone Comments significant tenderness proximal hamstrings Body Location L medial proximal hamstrings Mobilization Type Sustained Pressure,Trigger Point Release Intensity/Depth Deep Body Position Prone Comments slight tenderness noted at center proximal hamstrings PT-OP-T Assessment and Plan Start: 07/07/20 16:53 Freq: Status: Active Protocol: Document 08/04/20 15:17 (Rec: 08/04/20 16:13 [id number]) Physical Therapy Assessment Goals Oswestry Impairment pt scores 18 on Oswestry LBP questionnaire Multiple Drum Sander Helper Goal (LTG) pt will score <10 on Oswestry LBP questionnaire to improve her quality of life LTG Duration 6 weeks pain Impairment unable to sit more than 1hour d/t pain Half-Way Goal (LTG) pt will be able to sit more than 1 hour without pain LTG Duration 6 weeks hamstrings strength Impairment L hamstrings strength = 4-/5 Half-Way Goal (LTG) pt will improve her L hamstrings strength to 5 /5 so she can fully practicipate her Isaura class without discomfort LTG Duration 6 weeks Assessment Summary Assessment Pt has not been progressing since IE. Reassessed her symptoms and noticed pt has significant tenderness to pressure at piriformis which is possibly contributing to her sitting discomfort. Pt has WNL hip and knee ROM but signifciant weakness at L piriformis. Therefore, pt might have piriformis syndrome with possible radiating pain to posterior thigh instead of hamstrings strain. Physical Therapy Plan Frequency and Duration Frequency of Treatment 1x/Week Duration of Treatment 6 weeks Plan of Care Start Date 07/07/20 Plan of Care End Date 08/21/20 Next Visit Focus/Plan Next Note Type Treatment Note Next Visit Plan check hEP bike hamstring curl , RDL, good mornings SLS
--- NOTE | 2020-08-29 14:14 | PT-OP ANOTE ---
called pt today and pt reports she hasnt had any discomfort for the past week or so and she has been doing all her HEP. She agreed to check with her again in 2 weeks for possible DC from therapy.
--- NOTE | 2020-09-22 10:28 | PT.OPDS ---
Current Diagnoses Sciatica, left side (08/04/20) Visit Care Team Role Provider Type Meg Samaniego ND Attending Provider Non-Staff Primary Care Provider Referring Provider Specialty: Naturopathy Address: [address] [place] [address], [facility] Email: Visit Number Visit Number 11/19 Discharge Summary PT-OP-T Assessment and Plan Start: 07/07/20 16:53 Freq: Status: Active Protocol: Document 09/22/20 10:27 (Rec: 09/22/20 10:27 [email or web address]) Physical Therapy Plan Discharge Physical Therapy Discharge Reasons Goals Met Discharge Comments pt has been doing well since last visit. No discomfort ntoed. Requested to be DC
== END 2020-09-23 08:30 ==
LOC: PHYS 15:15
PROVIDERS: PCP Naturopath; Referring Provider Naturopath; Visit Provider Naturopath
DX: M54.32 Sciatica, left side (principal)
CPT/HCPCS: 97110; 97140; 97161

== ENCOUNTER → 2020-12-29 11:52 | Outpatient (CLI) | payer BC, SELFPAY ==
--- NOTE | 2020-12-29 11:53 | DI.US.S_ITS ---
PROCEDURE: US ABDOMEN COMPLETE INDICATIONS: Left lower quadrant pain TECHNIQUE: Real-time scanning was performed of the abdominal and retroperitoneal organs, with image documentation. COMPARISON: None. FINDINGS: Liver: Normal size of the liver. No focal hepatic mass. Normal hepatic parenchymal echogenicity and echotexture. Gallbladder: Normally distended gallbladder. No wall thickening, pericholecystic fluid, sludge, or gallstone. Biliary ducts: Normal caliber. Pancreas: Visualized portions of the pancreas are sonographically normal. Spleen: Spleen is normal in size and homogeneous in echotexture. Kidneys: Normal size and appearance of both kidneys. No shadowing calculus or hydronephrosis. Aorta: Visualized aorta is normal in caliber at less than 3 cm. Iliacs: Proximal common iliac arteries are normal in caliber at less than 2.5 cm. IVC: Intrahepatic inferior vena cava is patent. Miscellaneous: No free abdominal fluid. IMPRESSION: Normal study. Dictated by: Luis Enrique Pedersen M.D. on 12/29/2020 at 16:20 Approved by: Luis Enrique Pedersen M.D. on 12/29/2020 at 16:21
--- NOTE | 2020-12-29 11:53 | DI.US.S_ITS ---
PROCEDURE: US PELVIC COMPLETE INDICATIONS: Left lower quadrant pain TECHNIQUE: Real-time scanning was performed of the pelvic organs, with image documentation. Additional endovaginal scanning was necessary due to incomplete visualization of the adnexal and endometrial structures by transabdominal scanning. COMPARISON: [facility], US, US ABDOMEN COMPLETE, 12/29/2020, 11:11. FINDINGS: Uterus: Uterus is anteverted and normal in size at 4.5 x 3.7 x 3.5 cm. No fibroids seen. The endometrium measures 4 mm in combined thickness. Ovaries: Within normal limits. Right ovary measures 2.6 x 1.8 x 1.7 cm. -Small right ovarian follicle measuring 1.4 cm. Left ovary measures 2.3 x 1.8 x 1.3 cm. Other: No pathologic free abdominal or pelvic fluid. IMPRESSION: 1. No abnormality identified to explain the patient's pain. No free fluid seen. 2. Normal sonographic appearance of the ovaries. Dictated by: Cory Buchanan M.D. on 12/29/2020 at 18:51 Approved by: Cory Buchanan M.D. on 12/29/2020 at 18:55
== END ==
PROVIDERS: PCP Naturopath; Referring Provider Naturopath; Visit Provider Naturopath
DX: R10.32 Left lower quadrant pain (principal)
CPT/HCPCS: 76700; 76830; 76856

== ENCOUNTER → 2021-04-20 08:16 | Outpatient (CLI) | payer BC, SELFPAY ==
[2021-04-20 09:50] LABS: Add Manual Diff / Slide Review NO; Basophils Absolute Auto 0 /uL (0-100); Basophils Percent Auto 1.2 % (0-2); Eosinophils Absolute Auto 0 /uL (0-450); Eosinophils Percent Auto 1.4 % (2-4); Hematocrit 39.3 % (36-46); Hemoglobin 13.1 g/dL (12.0-16.0); Lymphocytes Absolute Auto 1900 /uL (1100-4500); Lymphocytes Percent Auto 55.2 % (25-40); Mean Corpuscular HGB Conc 33.4 % (30-36); Mean Corpuscular Hemoglobin 33.6 PG (26-34); Mean Corpuscular Volume 100.6 fL (80-100); Monocytes Absolute Auto 200 /uL (0-900); Monocytes Percent Auto 6.1 % (3-14); Neutrophils Absolute Auto 1300 /uL (1500-7000); Neutrophils Percent Auto 36.1 % (50-75); Platelet Count 256 X10^3/uL (150-400); Red Cell Distribution Width 12.4 % (11.6-14.8); White Blood Cell Count 3.5 X10^3/uL (4.5-11.0)
[2021-04-20 10:10] LABS: Alanine Aminotransferase 18 IU/L (<35); Albumin 4.4 g/dL (3.5-5.0); Albumin Globulin Ratio 1.6 (1.0-2.8); Alkaline Phosphatase 43 U/L (38-126); Aspartate Aminotransferase 23 IU/L (14-36); BUN Creatinine Ratio 18.3 (6-22); Bilirubin Total 0.6 mg/dL (0.2-1.3); Blood Urea Nitrogen 13 mg/dL (7-17); Calcium 9.3 mg/dL (8.4-10.2); Carbon Dioxide 26 mmol/L (22-32); Chloride 105 mmol/L (98-107); Cholesterol 138 mg/dL (140-199); Estimated Glomerular Filt Rate > 60.0 mL/min (>60); Globulin 2.7 g/dL (1.7-4.1); Glucose 86 mg/dL (70-100); HDL Cholesterol 64 mg/dL (40-60); HEMOLYSIS < 15 (0-50); LDL Cholesterol Calculated 59 mg/dL (<100); Potassium 3.6 mmol/L (3.4-5.1); Sodium 137 mmol/L (137-145); Total Protein 7.1 g/dL (6.3-8.2); Triglycerides 73 mg/dL (35-150)
[2021-04-20 10:41] LABS: Ferritin 83 ng/mL (6-137)
[2021-04-20 10:55] LABS: Vitamin B12 276 pg/mL (239-931)
== END ==
PROVIDERS: PCP Naturopath; Referring Provider Naturopath; Visit Provider Naturopath
DX: Z00.00 Encounter for general adult medical examination without abnormal findings (principal); D50.9 Iron deficiency anemia, unspecified
CPT/HCPCS: 36415; 80053; 80061; 82607; 82728; 85025

== ENCOUNTER → 2022-04-06 15:39 | Outpatient (CLI) | payer BC, SELFPAY ==
--- NOTE | 2022-04-06 15:41 | DI.RAD.S_ITS ---
PROCEDURE: XR FOOT RT MIN 3V INDICATIONS: right foot pain TECHNIQUE: 3 views of the foot were acquired. COMPARISON: None. FINDINGS: Bones: No fractures or dislocations. There are degenerative changes of the right 1st metatarsophalangeal joint with mild hallux valgus angulation of the right great toe. Associated bunion formation. No suspicious bony lesions. Soft tissues: No tibiotalar joint effusion. Achilles tendon appears normal. IMPRESSION: Right foot without acute fracture or dislocation. Hallux valgus angulation of the right great toe at the 1st metatarsophalangeal joint with associated degenerative changes and bunion formation. Dictated by: Narendra Padron M.D. on 04/06/2022 at 17:05 Approved by: Narendra Padron M.D. on 04/06/2022 at 17:06
== END ==
PROVIDERS: PCP Naturopath; Referring Provider Nurse Practitioner Family; Visit Provider Nurse Practitioner Family
DX: S96.911A Strain of unspecified muscle and tendon at ankle and foot level, right foot, initial encounter (principal)
CPT/HCPCS: 73630

== ENCOUNTER → 2022-08-28 16:07 | Outpatient (CLI) | payer BC, SELFPAY ==
[2022-08-28 17:16] LABS: Add Manual Diff / Slide Review NO; Basophils Absolute Auto 0 /uL (0-100); Basophils Percent Auto 0.6 % (0-2); Eosinophils Absolute Auto 100 /uL (0-450); Hemoglobin 13.7 g/dL (12.0-16.0); Lymphocytes Absolute Auto 3000 /uL (1100-4500); Lymphocytes Percent Auto 51.5 % (25-40); Mean Corpuscular HGB Conc 34.2 % (30-36); Mean Corpuscular Hemoglobin 33.7 PG (26-34); Mean Corpuscular Volume 98.5 fL (80-100); Monocytes Absolute Auto 300 /uL (0-900); Monocytes Percent Auto 5.2 % (3-14); Neutrophils Absolute Auto 2400 /uL (1500-7000); Neutrophils Percent Auto 41.7 % (50-75); Platelet Count 279 X10^3/uL (150-400); Red Blood Cell Count 4.06 X10^6/uL (4.0-5.2); Red Cell Distribution Width 12.4 % (11.6-14.8); White Blood Cell Count 5.7 X10^3/uL (4.5-11.0)
[2022-08-28 17:35] LABS: Alanine Aminotransferase 17 IU/L (<35); Albumin 4.5 g/dL (3.5-5.0); Albumin Globulin Ratio 1.5 (1.0-2.8); Alkaline Phosphatase 57 U/L (38-126); Aspartate Aminotransferase 23 IU/L (14-36); BUN Creatinine Ratio 20.9 (6-22); Bilirubin Total 0.2 mg/dL (0.2-1.3); Blood Urea Nitrogen 14 mg/dL (7-17); Calcium 9.3 mg/dL (8.4-10.2); Carbon Dioxide 24 mmol/L (22-32); Chloride 103 mmol/L (98-107); Cholesterol 165 mg/dL (140-199); Estimated Glomerular Filt Rate > 60 mL/min (>60); Glucose 81 mg/dL (70-100); HDL Cholesterol 69 mg/dL (40-60); HEMOLYSIS < 15 (0-50); LDL Cholesterol Calculated 75 mg/dL (<100); Potassium 3.8 mmol/L (3.4-5.1); Sodium 135 mmol/L (137-145); Total Protein 7.5 g/dL (6.3-8.2); Triglycerides 104 mg/dL (35-150)
[2022-08-28 17:53] LABS: Follicle Stimulating Hormone 8.01 mIU/mL; Luteinizing Hormone 3.14 mIU/mL
[2022-08-28 18:10] LABS: Ferritin 102 ng/mL (6-137)
[2022-08-28 18:24] LABS: Vitamin B12 281 pg/mL (239-931)
== END ==
PROVIDERS: PCP Naturopath; Referring Provider Naturopath; Visit Provider Naturopath
DX: Z00.00 Encounter for general adult medical examination without abnormal findings (principal); D50.9 Iron deficiency anemia, unspecified; N95.1 Menopausal and female climacteric states
CPT/HCPCS: 36415; 80053; 80061; 82607; 82728; 83001; 83002; 85025

== ENCOUNTER 2024-06-03 07:28 | Emergency (ER) | payer OTHER, MEDICAID, SELFPAY ==
[2024-06-03 07:47] VITALS: BP 129/82; PULSE 86; RESP 18; TEMP 37.1; O2SAT 100; BMI 17.2
--- NOTE | 2024-06-03 08:25 | ED.SKABFB ---
HPI - Skin/Abscess/Foreign Bdy General Chief complaint: Skin/Abscess/Foreign Body Stated complaint: Spider Bite,line going up L arm Time Seen by Provider: 06/03/24 07:35 Source: patient Mode of arrival: Family Vehicle Limitations: no limitations History of Present Illness HPI narrative: 48-year-old woman with minimal medical history describes getting a spider bite the developed right middle finger on the tip starting the evening of May 31, there was no obvious trauma or obvious visualized spider. Developed what looked like a paronychial infection it did drain clear fluid and over the ensuing couple of days has become increasingly red there was now bit of bleeding that looks like it is filled the bullous space of the tip of her finger, the entire finger is slightly swollen and there is 2 lymphangitic streaks going up the dorsum of the hand toward her elbow. She complains of pain in her axilla. No fevers otherwise she has not noticed any additional drainage from the finger. She has been more tired and today states she is beginning to ache all over. No chest pain or cough Related Data Previous Rx's Medication Instructions Recorded [id number] 3.5 4 drp otic (ear) TID #10 mL 08/15/ mg/mL-10,000 unit/mL-1 % ear solution doxycycline hyclate 100 mg capsule 100 mg PO BID #20 caps 06/03/24 oxycodone-acetaminophen 5 mg-325 1 tab PO Q6H PRN pain #7 tabs 06/03/24 mg tablet Allergies Allergy/AdvReac Type Severity Reaction Status Date / Time Sulfa (Sulfonamide Allergy Severe BREATHING Verified 12/26/21 11:08 Antibiotics) ISSUES Review of Systems Review of Systems Narrative: Pertinent positive and negative findings as per HPI Patient History Social History Smoking Status: Never smoker Smoking Status: Never smoker alcohol intake frequency: 0-2 drinks per day Substance Use Type: does not use Exam Initial Vital Signs Initial Vital Signs: Vital Signs Temperature 98.7 F 06/03/24 07:47 Pulse Rate 86 06/03/24 07:47 Respiratory Rate 18 06/03/24 07:47 Blood Pressure 129/82 06/03/24 07:47 Pulse Oximetry 100 06/03/24 07:47 Oxygen Delivery Method Room Air 06/03/24 07:47 General: Alert appropriate in no acute distress Respiratory: Able to speak in full sentences, no obvious respiratory distress Skin: No obvious rashes, warm and dry Neurologic: Grossly intact no obvious asymmetries or abnormalities Psych: appropriate insight and affect, cooperative Extremity: Left middle finger with small paronychial bulla and now erythema extending up the dorsal surface of the hand associated with swelling and lymphangitic streaking. She does have axillary tenderness in the left side Course Orders Ordered: ED Orders 06/03/24 09:25 Complete Blood Count AUTO DIFF Stat Comprehensive Metabolic Panel Stat Miscellaneous to [facility] Stat 06/03/24 10:10 Wound Culture and Gram Stain Stat Discontinued Medications Diazepam (Diazepam 5 Mg Tablet) 5 mg PO NOW ONE Stop: 06/03/24 08:18 Last Admin: 06/03/24 08:27 Dose: 5 mg Documented By: RUFINO Ceftriaxone Sodium 2,000 mg/ (Sodium Chloride) 100 mls @ 200 mls/hr IV NOW ONE Stop: 06/03/24 08:30 Last Infusion: 06/03/24 10:11 Dose: Infused Documented By: Admin: 06/03/24 09:34 Dose: 200 mls/hr Documented By: POP Ketorolac Tromethamine (Ketorolac 30 Mg/Ml Vial) 15 mg IV NOW ONE Stop: 06/03/24 08:18 Last Admin: 06/03/24 09:34 Dose: 15 mg Documented By: POP Lidocaine/Prilocaine (Lidocaine/Prilocaine 5 Gm) 5 gm TOP NOW ONE Stop: 06/03/24 08:18 Last Admin: 06/03/24 08:27 Dose: 5 gm Documented By: RUFINO Vital Signs Vital signs: Vital Signs - 8 hr 06/03/24 07:47 06/03/24 09:36 Temperature 98.7 F Pulse Rate 86 66 Respiratory Rate 18 Blood Pressure 129/82 Pulse Oximetry 100 100 Oxygen Delivery Method Room Air MDM - Skin/Abscess/Foreign Bdy Lab Data 06/03/24 09:25 06/03/24 09:25 Labs: Lab Results 06/03/24 Range/Units 09:25 WBC 10.4 (4.5-11.0) X10^3/uL RBC 3.67 L (4.0-5.2) X10^6/uL Hgb 12.4 (12.0-16.0) g/dL Hct 36.4 (36-46) % MCV 99.2 (80-100) fL MCH 33.8 (26-34) PG MCHC 34.1 (30-36) % RDW 13.4 (11.6-14.8) % Plt Count 276 (150-400) X10^3/uL Neut % (Auto) 88.7 H (50-75) % Lymph % (Auto) 8.1 L (25-40) % [place] % (Auto) 3.0 (3-14) % Eos % (Auto) 0.0 L (2-4) % Baso % (Auto) 0.2 (0-2) % Neut # (Auto) 9200 H (7414-0844) /uL Lymph # (Auto) 800 L (0425-6518) /uL [place] # (Auto) 300 (0-900) /uL Eos # (Auto) 0 (0-450) /uL Baso # (Auto) 0 (0-100) /uL ESR Cancelled Sodium 136 L (137-145) mmol/L Potassium 3.8 (3.4-5.1) mmol/L Chloride 105 (98-107) mmol/L Carbon Dioxide 24 (22-32) mmol/L BUN 8 (7-17) mg/dL Creatinine 0.59 (0.52-1.04) mg/dL Estimated GFR > 60 (>60) mL/min BUN/Creatinine Ratio 13.6 (6-22) Glucose 98 (70-100) mg/dL Calcium 9.3 (8.4-10.2) mg/dL Total Bilirubin 0.7 (0.2-1.3) mg/dL AST 20 (14-36) IU/L ALT 15 (<35) IU/L Alkaline Phosphatase 52 (38-126) U/L Total Protein 7.2 (6.3-8.2) g/dL Albumin 4.4 (3.5-5.0) g/dL Globulin 2.8 (1.7-4.1) g/dL Albumin/Globulin Ratio 1.6 (1.0-2.8) MDM Narrative Medical decision making narrative: CC: Left finger infection Data collected from: patient Differential considered: Simple paronychia, fell and, cellulitis with lymphangitic streaking Exam documented above, pertinent findings include: Left middle finger is swollen, bulla with minor blood from the paronychia left middle finger. Lymphangitic streaking up the dorsum of the hand toward the elbow. Lab Test results independently reviewed as above. Pertinent findings: CBC has no leukocytosis but 88% neutrophils Chemistries are reassuring Treatments: Anxiety treatment IV ceftriaxone Wound culture obtained Re-evaluations: Patient is still having some pain after the Toradol. She is given oxycodone Discussion: 48-year-old woman with infection in the left middle finger does not look like it has a deep tissue infection does look like it started with a paronychial cut or injury. She was given ceftriaxone in the emergency department. Discussed anticipated course of recovery. Explain that the red streaking up her arm she would begun within 24 hours and within 48 hours the red over the dorsum of her hand should be gone. Still accept some pain and swelling around the tip of the finger itself. If she gets worse or has systemic symptoms she needs to return. Questions are answered there was no indication for additional imaging or hospitalization and she is safe for discharge Discharge Plan Departure Patient Disposition: Home Clinical Impression: Cellulitis Qualifiers: Site of cellulitis: extremity Site of cellulitis of extremity: finger Laterality: left Qualified Code(s): L03.012 - Cellulitis of left finger Instructions: DI for Cellulitis -- Adult Activity Restrictions/Additional Instructions: Thank you for coming in today It does look like you have cellulitis but it does not look like you have infection that has spread throughout your body. I did try to collect a small culture from the liquid under the blister at the tip of your finger. You are given ceftriaxone, an antibiotic in the emergency department. I would like you to complete an additional 10 days of oral doxycycline. Using 400 mg of ibuprofen (2 zopi-owv-hzytwwm pills) and 1 Tylenol every 6 hours can be very helpful in controlling pain. For severe pain you can use 400 mg and half to a whole Percocet If you find that you are getting worse or develop any new symptoms, please feel free to return to the emergency department for further evaluation. Prescriptions: New doxycycline hyclate 100 mg capsule 100 mg PO BID Qty: 20 0RF oxycodone-acetaminophen 5-325 mg tablet 1 tab PO Q6H PRN (Reason: pain) Qty: 7 0RF No Action [id number]-[id number]-PJ 3.5-10,000-1 mg/mL-unit/mL-% solution 4 drp otic (ear) TID Qty: 10 2RF Referrals: Lucy Chiu FNP-BC [Primary Care Provider] - Stand Alone Forms: Patient Portal/API/Survey
[2024-06-03] MEDS: LIDOCAINE/PRILOCAINE 5 GM TOP (08:27)
[2024-06-03] MEDS: diazePAM 5 MG TABLET PO (08:27)
[2024-06-03] MEDS: KETOROLAC 30 MG/ML VIAL 15 MG IV (09:34)
[2024-06-03] MEDS: cefTRIAXone 2,000 MG in SODIUM CHLORIDE 0.9% 100 ML 200 MG IV (09:34)
[2024-06-03 09:36] VITALS: PULSE 66; O2SAT 100
[2024-06-03 09:38] LABS: Add Manual Diff / Slide Review NO; Basophils Absolute Auto 0 /uL (0-100); Basophils Percent Auto 0.2 % (0-2); Eosinophils Absolute Auto 0 /uL (0-450); Hematocrit 36.4 % (36-46); Hemoglobin 12.4 g/dL (12.0-16.0); Lymphocytes Absolute Auto 800 /uL (1100-4500); Lymphocytes Percent Auto 8.1 % (25-40); Mean Corpuscular HGB Conc 34.1 % (30-36); Mean Corpuscular Hemoglobin 33.8 PG (26-34); Mean Corpuscular Volume 99.2 fL (80-100); Monocytes Absolute Auto 300 /uL (0-900); Neutrophils Absolute Auto 9200 /uL (1500-7000); Neutrophils Percent Auto 88.7 % (50-75); Platelet Count 276 X10^3/uL (150-400); Red Blood Cell Count 3.67 X10^6/uL (4.0-5.2); Red Cell Distribution Width 13.4 % (11.6-14.8); White Blood Cell Count 10.4 X10^3/uL (4.5-11.0)
[2024-06-03 09:50] LABS: Alanine Aminotransferase 15 IU/L (<35); Albumin 4.4 g/dL (3.5-5.0); Albumin Globulin Ratio 1.6 (1.0-2.8); Alkaline Phosphatase 52 U/L (38-126); Aspartate Aminotransferase 20 IU/L (14-36); BUN Creatinine Ratio 13.6 (6-22); Bilirubin Total 0.7 mg/dL (0.2-1.3); Blood Urea Nitrogen 8 mg/dL (7-17); Calcium 9.3 mg/dL (8.4-10.2); Carbon Dioxide 24 mmol/L (22-32); Chloride 105 mmol/L (98-107); Estimated Glomerular Filt Rate > 60 mL/min (>60); Globulin 2.8 g/dL (1.7-4.1); Glucose 98 mg/dL (70-100); HEMOLYSIS < 15 (0-50); Potassium 3.8 mmol/L (3.4-5.1); Sodium 136 mmol/L (137-145); Total Protein 7.2 g/dL (6.3-8.2)
[2024-06-03 10:00] VITALS: PULSE 66; O2SAT 100
[2024-06-03 10:30] VITALS: PULSE 68; O2SAT 100
[2024-06-03 11:02] VITALS: BP 124/74; PULSE 70; RESP 18; O2SAT 100
== END 2024-06-03 11:03 | disposition home or self-care (01) ==
PROVIDERS: Emergency Provider Emergency Medicine; PCP Nurse Practitioner Family
DX: L03.012 Cellulitis of left finger (principal)
CPT/HCPCS: 36415; 80053; 85025; 85652; 87070; 87075; 87205; 96365; 96375; 99284; J0696; J1885

== ENCOUNTER → 2024-06-15 13:31 | Outpatient (CLI) | payer OTHER, MEDICAID, SELFPAY ==
--- NOTE | 2024-06-15 13:34 | DI.RAD.S_ITS ---
PROCEDURE: XR FINGER LT MIN 2V INDICATIONS: PURULENT ABSCESS TECHNIQUE: AP hand, 2 views of the 2 finger(s) acquired. COMPARISON: None. FINDINGS: Bones: No fractures or dislocations. No suspicious bony lesions. Soft tissues: No suspicious soft tissue calcifications. IMPRESSION: No acute bony abnormality. Approved by: Camilo Peters M.D. on 06/15/2024 at 19:02
== END ==
PROVIDERS: PCP Nurse Practitioner Family; Referring Provider Nurse Practitioner Family; Visit Provider Nurse Practitioner Family
DX: L02.91 Cutaneous abscess, unspecified (principal)
CPT/HCPCS: 73140

== ENCOUNTER 2024-06-16 14:41 | Emergency (ER) | payer OTHER, MEDICAID, SELFPAY ==
[2024-06-16 15:12] VITALS: BP 146/88; PULSE 75; RESP 16; TEMP 36.9; O2SAT 98; BMI 17.2
--- NOTE | 2024-06-16 16:39 | ED.SKABFB ---
HPI - Skin/Abscess/Foreign Bdy <Nikos Brooks PA-C - Last Filed: 06/16/24 18:42> General Chief complaint: Skin/Abscess/Foreign Body Stated complaint: incision and drainage,sent by ortho surgeon Time Seen by Provider: 06/16/24 16:21 Source: patient Mode of arrival: Ambulatory Limitations: no limitations History of Present Illness HPI narrative: 49-year-old female presents to the ED for a left middle finger infection sustained on 06/02/2024. Patient is not completely sure, however suspects that the injury started with a spider bite. A paronychia like infection developed, which was incised by her friend, following which she noted worsening and red streaking up her arm. Patient was seen in the ED on 06/03/2024, given IV Rocephin and prescribed p.o. doxycycline to take at home. Patient has been doing that and noting improvement. Patient also followed up with her PCP who referred her to a ortho surgeon for further evaluation. Patient states that her PCP also put her on a course of cephalexin which she has completed. Patient still has 6 days of doxycycline that she is continuing to take. Patient is sent a picture of her finger today to the ortho surgeon, who recommended she come to the ED for an I and D and IV antibiotics. Patient notes that her pain has improved since the injury started. Patient however is unable to move the DIP of the left middle finger. Patient also notes some dark skin tissue at the proximal edge of the wound. Patient states that she has noticed a blister over the last 2 days. No fever, chills, numbness, tingling, weakness. Related Data Home Medications Medication Instructions Recorded Confirmed norethindrone acetate 1 mg-ethinyl 1 tab PO DAILY 06/05/24 06/05/24 estradiol 20 mcg tablet Previous Rx's Medication Instructions Recorded doxycycline hyclate 100 mg capsule 100 mg PO BID #20 caps 06/03/24 oxycodone-acetaminophen 5 mg-325 1 tab PO Q6H PRN pain #7 tabs 06/03/24 mg tablet Allergies Allergy/AdvReac Type Severity Reaction Status Date / Time Sulfa (Sulfonamide Allergy Severe BREATHING Verified 06/05/24 09:39 Antibiotics) ISSUES Review of Systems <Nikos Brooks PA-C - Last Filed: 06/16/24 18:42> Constitutional Constitutional: Denies chills, Denies fatigue, Denies fever(s), Denies frequent falls, Denies lethargy and Denies weakness Eyes Eyes: Denies change in vision, Denies eye discharge, Denies irritation and Denies loss of vision ENT Ears, Nose, Mouth, and Throat: Denies change in voice, Denies dizziness, Denies neck pain, Denies sore throat and Denies throat swelling Cardiovascular Cardiovascular: Denies chest pain, Denies irregular heart rhythm, Denies lightheadedness, Denies palpitations, Denies dyspnea, Denies dyspnea on exertion and Denies orthopnea Respiratory Respiratory: Denies cough, Denies dyspnea, Denies dyspnea on exertion and Denies wheezing Gastrointestinal Gastrointestinal: Denies abdominal pain, Denies change in bowel habits, Denies diarrhea, Denies nausea and Denies vomiting Musculoskeletal Musculoskeletal: Denies neck pain and Denies numbness Integumentary/Breasts Skin/Breast: Denies pruritus, Denies erythema, Denies rash and Denies wounds Comments: Finger wound, left middle finger Neurologic Neurologic: Denies behavioral changes, Denies confusion, Denies dizziness, Denies frequent falls, Denies loss of vision, Denies numbness and Denies weakness Psychiatric Psychiatric: Denies anxiety, Denies behavioral changes, Denies confusion, Denies depression, Denies homicidal ideation and Denies suicidal ideation Endocrine Endocrine: Denies fatigue, Denies flushing and Denies palpitations Hematologic/Lymphatic Hematologic/Lymphatic: Denies easy bruising Allergic/Immunologic Allergic/Immunologic: Denies urticaria, Denies throat swelling and Denies wheezing Patient History <Nikos Brooks PA-C - Last Filed: 06/16/24 18:42> Social History Smoking Status: Never smoker Smoking Status: Never smoker alcohol intake frequency: 0-2 drinks per day Substance Use Type: does not use Exam <Nikos Brooks PA-C - Last Filed: 06/16/24 18:42> Narrative Exam Narrative: Const General:?cooperative, healthy appearing and comfortable [facility] Head:?normal to inspection Ears:?hearing grossly normal bilaterally Nose:?external nose normal Face and sinus:?normal facial exam and sinuses nontender Mouth:?oral mucosae normal Throat:?posterior oropharynx normal Eyes General:?appearance normal, both eyes and all related structures Neck Neck:?normal visual inspection and no lymphadenopathy noted Resp Effort & Inspection:?normal respiratory effort Auscultation:?clear to auscultation bilaterally Cardio Rate:?regular rate Rhythm:?regular rhythm Integumentary/musculoskeletal There is a small fluctuant blister on the dorsal aspect of the left middle finger tip. No streaking, erythema. Minimal tenderness to palpation. Patient unable to flex the DIP of the left middle finger. Cap refill less than 2 seconds. Sensation intact. Neurovascularly intact. Neuro General:?patient alert, patient awake and patient oriented x3 Initial Vital Signs Initial Vital Signs: Vital Signs Temperature 98.4 F 06/16/24 15:12 Pulse Rate 75 06/16/24 15:12 Respiratory Rate 16 06/16/24 15:12 Blood Pressure 146/88 H 06/16/24 15:12 Pulse Oximetry 98 06/16/24 15:12 Oxygen Delivery Method Room Air 06/16/24 15:12 <Michelle Washington DO - Last Filed: 06/21/24 19:17> Initial Vital Signs Initial Vital Signs: Vital Signs Temperature 98.4 F 06/16/24 15:12 Pulse Rate 75 06/16/24 15:12 Respiratory Rate 16 06/16/24 15:12 Blood Pressure 146/88 H 06/16/24 15:12 Pulse Oximetry 98 06/16/24 15:12 Oxygen Delivery Method Room Air 06/16/24 15:12 Procedures <Nikos Brooks PA-C - Last Filed: 06/16/24 18:42> Abscess I/D I&D #1: Site: hand Side (if applicable): left Technique: needle aspiration Amount of fluid expressed (mL): 0.1 Irrigation: No Packing used?: none Course <Nikos Brooks PA-C - Last Filed: 06/16/24 18:42> Orders Ordered: Discontinued Medications Ceftriaxone Sodium (Ceftriaxone 2,000 Mg Vial) 1,000 mg IM NOW ONE Stop: 06/16/24 18:08 Last Admin: 06/16/24 18:20 Dose: 1,000 mg Documented By: TAMMY Lidocaine HCl (Lidocaine 1% (Pf) 5 Ml) 4.2 ml INJ NOW ONE Stop: 06/16/24 18:08 Last Admin: 06/16/24 18:20 Dose: 4.2 ml Documented By: TAMMY Vital Signs Vital signs: Vital Signs - 8 hr 06/16/24 15:12 Temperature 98.4 F Pulse Rate 75 Respiratory Rate 16 Blood Pressure 146/88 H Pulse Oximetry 98 Oxygen Delivery Method Room Air <Michelle Washington DO - Last Filed: 06/21/24 19:17> Orders Ordered: Discontinued Medications Ceftriaxone Sodium (Ceftriaxone 2,000 Mg Vial) 1,000 mg IM NOW ONE Stop: 06/16/24 18:08 Last Admin: 06/16/24 18:20 Dose: 1,000 mg Documented By: TAMMY Lidocaine HCl (Lidocaine 1% (Pf) 5 Ml) 4.2 ml INJ NOW ONE Stop: 06/16/24 18:08 Last Admin: 06/16/24 18:20 Dose: 4.2 ml Documented By: TAMMY Vital Signs Vital signs: Vital Signs - 8 hr 06/16/24 15:12 Temperature 98.4 F Pulse Rate 75 Respiratory Rate 16 Blood Pressure 146/88 H Pulse Oximetry 98 Oxygen Delivery Method Room Air MDM - Skin/Abscess/Foreign Bdy <Nikos Brooks PA-C - Last Filed: 06/16/24 18:42> MDM Narrative Medical decision making narrative: 49-year-old female presents to the ED for a left middle finger infection sustained on 06/02/2024. An incision and drainage was performed, a very small amount of blood was drained. No pus was noted. Sample sent for culture. The wound appears to be healing well other than this blister. No streaking. Minimal tenderness to palpation. Considered septic joint, however unlikely given history and physical. Patient was given 1 g IM Rocephin, recommend continuing doxycycline p.o. at home. Patient has an appointment with ortho for tomorrow. Patient also given number for [facility]. ED return precautions discussed with patient. Patient verbalized understanding. Medical records reviewed: Yes Discharge Plan Departure Patient Disposition: Home Clinical Impression: Finger infection Instructions: DI for Cellulitis -- Adult Activity Restrictions/Additional Instructions: You were evaluated in the ED today for a finger infection. An incision and drainage was performed, a very small amount of blood was drained and sample obtained for culture. You have been given an injection of ceftriaxone. Please continue the doxycycline at home as prescribed. Please follow-up with your ortho surgeon that you were scheduled to see tomorrow or you may call [facility] by calling make an appointment. Return to the ED if you have worsening symptoms, fever, chills, numbness, tingling, weakness. Prescriptions: No Action norethindrone ac-eth estradiol 1-20 mg-mcg tablet 1 tab PO DAILY doxycycline hyclate 100 mg capsule 100 mg PO BID Qty: 20 0RF oxycodone-acetaminophen 5-325 mg tablet 1 tab PO Q6H PRN (Reason: pain) Qty: 7 0RF Referrals: Lucy Chiu, HELEN-BC [Primary Care Provider] - Stand Alone Forms: Patient Portal/API/Survey ED Sign-out <Michelle Washington DO - Last Filed: 06/21/24 19:17> Cosign ED Attending Jesse Attestation: I was immediately available in the department for consultation. case was discussed with, plan for follow up tomorrow with Orthopedic surgery for repeat evaluation.
[2024-06-16] MEDS: cefTRIAXone 2,000 MG VIAL 1000 MG IM (18:20)
[2024-06-16] MEDS: LIDOCAINE 1% (PF) 5 ML 4.2 ML INJ (18:20)
--- NOTE | 2024-06-16 18:44 | PC.NURSE ---
Non adherent bandage applied to left middle finger after wound culture obtained. IM Rocephin administered to right glute. RN explained to pt IM injection may sting initially after administration. About 5 minutes after pt stated her right glute was sore after the injection. RN explained again that some discomfort is an expected smptom after an injection but told pt she was welcome to stay n ED to be monitored further. Pt declined to stay and discharged from ER
== END 2024-06-16 18:51 | disposition home or self-care (01) ==
PROVIDERS: Emergency Provider Student in an Organized Health Care Education/Training Program; PCP Nurse Practitioner Family
DX: L03.012 Cellulitis of left finger (principal)
CPT/HCPCS: 10060; 87070; 87075; 87205; 96372; 99283; J0696

== ENCOUNTER → 2024-12-15 16:03 | Outpatient (CLI) | payer OTHER, MEDICAID, SELFPAY ==
[2024-12-15 17:21] LABS: Appearance Urine UA CLEAR; Bilirubin Urine UA NEGATIVE (NEGATIVE); Color Urine UA YELLOW; Glucose Urine UA NEGATIVE (Negative); Ketones Urine UA NEGATIVE (NEGATIVE); Leukocyte Esterase Urine UA NEGATIVE (NEGATIVE); Nitrite Urine UA NEGATIVE (Negative); Occult Blood Urine UA NEGATIVE (Negative); Protein Urine UA NEGATIVE (Negative); Specific Gravity Urine UA <=1.005 (1.000-1.035); Urobilinogen Urine UA 0.2 E.U./dL (0.2)
[2024-12-15 17:27] LABS: Bacteria Urine Occasional (0-1); Culture Indicated Urine Cult Not Indicated; RBC Urine 0-1/HPF (0-5/HPF); Squamous Epithelial Cell Urine 0-1 /HPF (0-5/HPF); Urine Volume 10mL (spun); WBC Urine 0-1/HPF (0-5/HPF)
[2024-12-15 17:44] LABS: Add Manual Diff / Slide Review NO; Basophils Absolute Auto 100 /uL (0-100); Basophils Percent Auto 0.9 % (0-2); Eosinophils Absolute Auto 0 /uL (0-450); Eosinophils Percent Auto 0.5 % (2-4); Hemoglobin 13.3 g/dL (12.0-16.0); Lymphocytes Absolute Auto 2500 /uL (1100-4500); Lymphocytes Percent Auto 43.5 % (25-40); Mean Corpuscular HGB Conc 34.2 % (30-36); Mean Corpuscular Hemoglobin 34.5 PG (26-34); Monocytes Absolute Auto 300 /uL (0-900); Monocytes Percent Auto 4.7 % (3-14); Neutrophils Absolute Auto 2800 /uL (1500-7000); Neutrophils Percent Auto 50.4 % (50-75); Platelet Count 298 X10^3/uL (150-400); Red Blood Cell Count 3.86 X10^6/uL (4.0-5.2); Red Cell Distribution Width 12.2 % (11.6-14.8); White Blood Cell Count 5.6 X10^3/uL (4.5-11.0)
[2024-12-15 17:57] LABS: Alanine Aminotransferase 21 IU/L (<35); Albumin 4.8 g/dL (3.5-5.0); Albumin Globulin Ratio 2.3 (1.0-2.8); Alkaline Phosphatase 44 U/L (38-126); Aspartate Aminotransferase 30 IU/L (14-36); BUN Creatinine Ratio 26.5 (6-22); Bilirubin Total 0.5 mg/dL (0.2-1.3); Blood Urea Nitrogen 18 mg/dL (7-17); Calcium 9.2 mg/dL (8.4-10.2); Carbon Dioxide 22 mmol/L (22-32); Chloride 102 mmol/L (98-107); Estimated Glomerular Filt Rate > 60 mL/min (>60); Globulin 2.1 g/dL (1.7-4.1); Glucose 108 mg/dL (70-99); HEMOLYSIS < 15 (0-50); Potassium 3.9 mmol/L (3.4-5.1); Sodium 134 mmol/L (137-145); Total Protein 6.9 g/dL (6.3-8.2)
[2024-12-15 18:33] LABS: Ferritin 90 ng/mL (6-137)
[2024-12-15 18:47] LABS: Vitamin B12 353 pg/mL (239-931)
[2024-12-17 04:41] LABS: Apolipoprotein B 63 mg/dL (<90)
== END ==
PROVIDERS: PCP Nurse Practitioner Family; Referring Provider Nurse Practitioner Family; Visit Provider Nurse Practitioner Family
DX: R30.0 Dysuria (principal); G47.00 Insomnia, unspecified; E78.1 Pure hyperglyceridemia
CPT/HCPCS: 36415; 80053; 81001; 82172; 82306; 82607; 82728; 83695; 85025

== ENCOUNTER → 2025-06-02 13:21 | Outpatient (CLI) | payer OTHER, SELFPAY | PROVIDERS: PCP Nurse Practitioner Family; Referring Provider Internal Medicine; Visit Provider Internal Medicine | DX: R10.13 Epigastric pain (principal) | CPT/HCPCS: 36415; 82784; 83516 ==